=== PATIENT | male | born 2005 | race Caucasian/White ===

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

== ENCOUNTER 2025-01-09 12:10 | Emergency (ER) | payer BC, SELFPAY ==
[2025-01-09 12:24] VITALS: BP 116/62; PULSE 74; RESP 18; TEMP 36.2; O2SAT 99
--- OUTSIDE RECORDS SUMMARY | 2025-01-09 12:51 | XMS_ITS | Encounter Summary ---
Author Organization [facility] Address [address] [place]: [place] [address] Care Team Providers Care Hand Mounter Name Role Phone Unavailable Primary Care Provider Unavailabl e Encounter Details Date Type Department Care Team (Late st Contact Info) Description 2003 Inpatient Historical [place], Josh Benavides MD [address] [place] [address] Kay Payan MD [address] [facility] [address] [place] [address] KHADIJAH BORN IN HOSP-W C/DELIVERY (Primary Dx) Social History Tobacco Use Types Packs/Day Years Used Date Smoking Tobacco: Never Assessed Sex and Gender Information Value Date Recorded Sex Assigned at Not on file Legal Sex Male 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
--- OUTSIDE RECORDS SUMMARY | 2025-01-09 12:51 | XMS_ITS | Encounter Summary ---
Author Organization [address] [address] Care Team Providers Care Director Housekeeping Name Role Phone Mallory Valencia MD Primary Care Provider [phone] Reason for Visit * Reason Onset Date Comments Record Request 03/21/2020 sport physical n eeds proof of it need copy Encounter Details Date Type Department Care Team (Late st Contact Info) Description 03/21/2020 Telephone [facility] [address], [address] [place] [address] Provider, [facility] Vincent Cadiz Record Request (sport physical needs proof of it need copy) Social History Tobacco Use Types Packs/Day Years Used Date Smoking Tobacco: Never Smokeless Tobacco: Never Alcohol Use Standard Drinks/Week Comments No 0 (1 standard drink = 0.6 oz pur e alcohol) Sex and Gender Information Value Date Recorded Sex Assigned at Not on file Legal Sex Male 1:15 PM CDT Gender Identity Not on file Sexual Orientation Not on file documented as of this encounter Miscellaneous Notes * Telephone Encounter - Janice Anderson - 03/21/2020 1:49 PM CDT Who is calling? mother If caller is anyone other than listed above, where are they calling from? Cell phone What is the reason for call? Request copy of sport phyiscal Expected Response from the Clinic? Call back documented in this encounter Plan of Treatment Not on file documented as of this encounter Visit Diagnoses Not on filedocumented in this encounter Care Teams Director Housekeeping Relationship Specialty Start Date End Date Mallory Valencia MD [address] [address] PCP - General 02/28/18 documented as of this encounter
--- OUTSIDE RECORDS SUMMARY | 2025-01-09 12:51 | XMS_ITS | Encounter Summary ---
Author Organization [facility] Address [address] [place] [address] Care Team Providers Care Synthetic Department Supervisor Name Role Phone Unavailable Primary Care Provider Unavailabl e Encounter Details Date Type Department Care Team (Late st Contact Info) Description 2003 Outpatient Historical [facility] Pediatrics - Medical [address] [address] Kay Payan MD 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
--- OUTSIDE RECORDS SUMMARY | 2025-01-09 12:51 | XMS_ITS | Clinical Summary ---
Author Organization [facility] Address [address] [place], [place] [address] Care Team Providers Care Pantograph Engraver Name Role Phone Mallory Valencia MD Primary Care Provider [phone] Source Comments [facility],non-owned Affiliates and Associated Physician Practices is amultiple site organization consisting of ambulatory clinics and hospital sitesin [place], [place], [place] and [place]. This disclosure is being madepursuant to the Care Everywhere program and may not contain all information available regarding this patient. Last updated 18.[facility] [employer] Allergies No known active allergies Medications * Be aware that medications may not be up to date on this document. Alwaysverify current medications with the patient. No known medications Active Problems Problem Noted Date Diagnosed Date H/O tympanostomy 02/28/2018 Mild exercise-induced asthma 02/28/2018 Hives 02/28/2018 Immunizations Immunization Administration Dates Next Due DPT 04/02/2009, 5,05/07/2004,02/05,2003 HEP A PEDS 2 DOSE 08/31/2006,02/27/2006 HEP B VACCINE, PED/ADOL 06/20/2005,05/07,02/06/2004,10/10 HIB-PRP-T 4 DOSE 02/11/2005, 4,02/06/2004,12/04 Human Papilloma Virus Bivalent Vaccine 7,02/22/2016 INFLUENZA VACCINE, QUADR. (F LUZONE; FLULAVAL; FLUARIX; AFLURIA QUADRIVALENT; 6MO+), 0.5 ML (IIV4) 05/25/2019,05/03/2018 MENINGOCOCAL MENINGITIS 03/13/2015 MENINGOCOCCAL ACWY MENVEO 04/02/2021 MMR 04/02/2009,02/11/2005 PNEUMOCOCCAL PCV7 CONJ, PEDS 05/07/2004,02/06/20 04,2003 POLIO IPV 04/02/2009, 5,05/07/2004,02/05,2003 TDAP (7yrs+) 03/13/2015 VARICELLA 04/02/2009,02/11/2005 Family History Medical History Relation Name Comments Hypertension Father Relation Name Status Comments Father Social History Tobacco Use Types Packs/Day Years Used Date Smoking Tobacco: Never Smokeless Tobacco: Never Alcohol Use Standard Drinks/Week Comments No 0 (1 standard drink = 0.6 oz pur e alcohol) PHQ-2 Answer Date Recorded PHQ2 TOTAL SCORE 0 04/02/2021 Sex and Gender Information Value Date Recorded Sex Assigned at Not on file Legal Sex Male 1:15 PM CDT Gender Identity Not on file Sexual Orientation Not on file Last Filed Vital Signs Vital Sign Reading Time Taken Comments Blood Pressure 112/62 04/02/2021 2:54 PM CDT Pulse 77 04/02/2021 2:54 PM CDT Temperature 36.5 C (97.7 F) 04/02/2021 2:54 PM CDT Respiratory Rate 16 04/02/2021 2:54 PM CDT Oxygen Saturation 97% 04/02/2021 2:54 PM CDT Inhaled Oxygen Concentration - - Weight 68.9 kg (151 lb 12.8 oz) 04/02/2021 2:54 PM CDT Height 177.8 cm (5' 10) 04/02/2021 2:54 PM CDT Body Mass Index 21.78 04/02/2021 2:54 PM CDT Plan of Treatment Health Maintenance Due Date Last Done Comments HIV SCREENING 10/09/2018 HPV VACCINE (1 - Male 3-dose series) 10/09/2018 03/09/2017, 02/22/2016 MENINGOCOCCAL (Group B) VACCINE SHARED DECISION-MAKING (1 of 2 - Standard) 2019 HEPATITIS C SCREENING 10/05/2021 COVID-19 VACCINE (3 - 2023-25 season) 2024 03/03/2021, 02/09/2021 DEPRESSION SCREENING 07/31/2024 DTAP/TDAP/TD VACCINES (7 - Td or Tdap) 03/13/2025 03/13/2015, 04/02/2009, 06/20/2005, Additional history exists INFLUENZA VACCINE (Season Ended) 2025 05/25/2019, 05/03/2018 ZOSTER VACCINE (1 of 2) 10/09/2053 PNEUMOCOCCAL VACCINE Aged Out 05/07/2004, 02/06/2004, 2003 No longer eligible based on patient's age to complete this topic HIB VACCINE Completed 02/11/2005, 02/2004, 02/06/2004, Additional history exists HEPATITIS B VACCINE Completed 06/20/2005, 05/07/2004, 02/06/2004, Additional history exists MENINGOCOCCAL GROUPS A/C/Y/W VACCINE Completed 04/02/2021, 03/13/[address] [place] [address] [address] [place] [address] [facility] Care Teams Pantograph Engraver Relationship Specialty Start Date End Date Mallory Valencia MD [address] [address] PCP - General 02/28/18
--- OUTSIDE RECORDS SUMMARY | 2025-01-09 12:51 | XMS_ITS | Clinical Summary ---
Author Organization [facility] Address [address] [place]: Epic Prelude [place] [address] Care Team Providers Care Trestle Builder Name Role Phone Unavailable Primary Care Provider Unavailabl e Social History Tobacco Use Types Packs/Day Years Used Date Smoking Tobacco: Never Assessed Sex and Gender Information Value Date Recorded Sex Assigned at Not on file Legal Sex Male 3:22 AM LATHE SPOTTER Gender Identity Not on file Sexual Orientation Not on file Plan of Treatment Health Maintenance Due Date Last Done Comments HPV VACCINES (1 - Male 3-dose series) 10/09/2018 DTAP/TDAP/TD VACCINES (1 - Tdap) 10/09/2022 HEPATITIS B VACCINES (1 of 3 - 19+ 3-dose series) 09/28 INFLUENZA VACCINE (#1) 2024
--- OUTSIDE RECORDS SUMMARY | 2025-01-09 12:51 | XMS_ITS | Encounter Summary ---
Author Organization [facility] Address 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
--- OUTSIDE RECORDS SUMMARY | 2025-01-09 12:51 | XMS_ITS | Encounter Summary ---
Author Organization [facility] Address [address] [place] [address] Care Team Providers Care Pressure Steamer Tender Name Role Phone Unavailable Primary Care Provider Unavailabl e Encounter Details Date Type Department Care Team (Late st Contact Info) Description 2003 Outpatient Historical [facility] Pediatrics - Medical [place] [address] Josh Rosado MD 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
--- NOTE | 2025-01-09 12:59 | ED.EAR ---
HPI - Ear Problem General Chief complaint: Ear Stated complaint: lt ear discomfort Time Seen by Provider: 01/09/25 12:30 Source: patient and RN notes reviewed Mode of arrival: ambulatory Limitations: no limitations History of Present Illness HPI Narrative: 19-year-old male presents Express Care complaining of left ear discomfort for approximately 2 weeks. Patient also reports right ear pain as well. Patient says is worse on the left. Patient reports having muffled hearing and a sensation of fullness in both ears. Patient reports he was recently swimming. Patient denies any discharge, fevers, any upper respiratory symptoms, cough, or any other symptoms. Patient denies any vision changes, blurry vision, dizziness. Related Data Allergies Allergy/AdvReac Type Severity Reaction Status Date / Time No Known Allergies Allergy Verified 01/09/25 12:26 Review of Systems Review of Systems: CONSTITUTIONAL: Denies fever, chills, or sweats. EYES: Denies visual changes, blurry vision, redness, or discharge. ENT: Denies rhinorrhea, congestion, sore throat. Positive for otalgia, ear fullness, decreased hearing. CARDIOVASCULAR: Denies chest pain, palpitations, dizziness or edema. RESPIRATORY: Denies cough or dyspnea. GASTROINTESTINAL: Denies abdominal pain, nausea, vomiting, or diarrhea. GENITOURINARY: Denies dysuria or hematuria. SKIN: Denies rash or itching. MUSCULOSKELETAL: Denies back pain, joint pain, or myalgia. NEUROLOGIC: Denies headache, numbness, or weakness. PSYCHIATRIC: Denies anxiety or depression. All other systems reviewed are negative, except as documented in HPI. [facility] Family History Family History Father Hypertension Depression Mother Thyroid condition Grandparent Hypertension Social History Social History Social History: Single/Student Smoking status: Never smoker Second hand tobacco smoke exposure: No Alcohol intake: never Substance use: never Substance use type: does not use Living arrangements: with family Occupation/Education: student Gender identity (if verbalized by the patient): Male Comments At the time of my signature, I reviewed and agree with the nursing past medical, surgical, social, and family history. There is no relevant family history pertinent to the patient complaint. Exam Narrative: GENERAL: This is a well-nourished, well-developed adult, in no apparent distress. They are non ill-appearing, nontoxic appearing. HEAD: normocephalic, atraumatic. EYES: Sclera clear/white. Conjunctiva normal. Vision is grossly intact. Extraocular movements intact. Pupils PERRLA. No nystagmus. EARS: External ears normal, auditory with impacted cerumen bilaterally, unable to visualize TMs. Hearing grossly intact. NOSE: External nose normal with no obvious nasal discharge, nasal turbinates without redness, no rhinorrhea. THROAT: Mucous membranes moist, posterior pharynx clear, without erythema or swelling. Uvula midline. NECK: Neck supple, non-tender without lymphadenopathy, masses or thyromegaly. CARDIOVASCULAR: Regular rate and rhythm without murmurs, gallops, or rubs. RESPIRATORY: Clear to auscultation. Breath sounds equal bilaterally. No wheezes, rales, or rhonchi. SKIN: warm, Dry, intact with no suspicious lesions or rash, good texture and turgor. NEURO: awake, alert, and oriented to person, place and time. There were no obvious focal neurologic abnormalities. EXTREMITIES: No joint tenderness, effusion, or edema noted. Course Course Emergency Course: Portions of this record may have been created with voice recognition software Level of Care: Express Care Visit Vital Signs Vital signs: Vital Signs Temperature 97.1 F L 01/09/25 12:24 Pulse Rate 74 01/09/25 12:24 Respiratory Rate 18 01/09/25 12:24 Blood Pressure 116/62 01/09/25 12:24 Pulse Oximetry 99 01/09/25 12:24 Oxygen Delivery Room Air 01/09/25 12:24 Temperature 97.1 F L 01/09/25 12:24 Pulse Rate 74 01/09/25 12:24 Respiratory Rate 18 01/09/25 12:24 Blood Pressure 116/62 01/09/25 12:24 Pulse Oximetry 99 01/09/25 12:24 Oxygen Delivery Room Air 01/09/25 12:24 Reviewed Procedures Ear Wax Removal Both Ears: Ear Wax Removal Date: 01/09/25 Ear Wax Removal Time: 12:45 Cerumenolytic Used: other (Water with a small amount hydrogen peroxide) Results: Re-examined: cerumen removed completely TM Examination: TM(s) intact, normal appearance Ear Canal Exam: atraumatic Patient Tolerated Procedure: well Complications: no problems Technique: ear canal irrigated and ear canal curetted Additional Comments: Ear canals are erythematous bilaterally. Patient tolerated procedure well. Medical Decision Making MDM Narrative Medical decision making narrative: Earwax successfully removed from both ear canals. Patient reports pain is subsided in his hearing significantly improved. TMs are intact with no evidence of infection. Auditory canals erythematous bilaterally. Prophylactically treat with ofloxacin ear drops. Discussed physical exam findings. Advised supportive measures and signs/symptoms to go to the ER. Pt is appropriate for outpt treatment and f/u. Differential Diagnosis Differential Diagnosis: Otitis media, otitis externa, impacted cerumen Vital Signs Vital Signs: Vital Signs Temperature 97.1 F L 01/09/25 12:24 Pulse Rate 74 01/09/25 12:24 Respiratory Rate 18 01/09/25 12:24 Blood Pressure 116/62 01/09/25 12:24 Pulse Oximetry 99 01/09/25 12:24 Oxygen Delivery Room Air 01/09/25 12:24 Temperature 97.1 F L 01/09/25 12:24 Pulse Rate 74 01/09/25 12:24 Respiratory Rate 18 01/09/25 12:24 Blood Pressure 116/62 01/09/25 12:24 Pulse Oximetry 99 01/09/25 12:24 Oxygen Delivery Room Air 01/09/25 12:24 Critical Care Time Critical Care Time Critical Care Time: No Discharge Plan Discharge Clinical Impression: Bilateral impacted cerumen Patient Disposition: Home Condition: Stable Instructions: Antibiotic Form, Ear Infection (ED) Additional Instructions: The wax in your ears was successfully removed today. Please use the antibiotic ear drops as directed. If you have earwax problems in the future make you may use carbamide peroxide to help soften earwax. Use as directed on the bottle. This is an [id number] medication. Avoid getting water in your years until you complete the antibiotic ear drops. Follow-up PCP in 3-5 days. If you develop any new worsening symptoms, dizziness, vision changes, fevers, or any other concerns please go to the ER immediately. Patient Language: Armenian Prescriptions: New ofloxacin 0.3 % drops 10 drp EACH EAR DAILY 7 Days Qty: 10 0RF Follow-up/Referrals: PHYSICIAN,FILTERER [Primary Care Provider] - Time of Disposition: 12:56
== END 2025-01-09 12:59 | disposition home or self-care (01) ==
DX: H61.23 Impacted cerumen, bilateral (principal)
CPT/HCPCS: 69210; 99213; G0463